=== PATIENT | female | born 1935 | race Caucasian/White ===

== ENCOUNTER 2020-07-27 12:05 | Emergency (ER) | payer MEDICARE, OTHER ==
[~2020-07-27] VITALS: Ht 152.4 cm; Wt 65.3 kg
[2020-07-27] MEDS ORDERED: GUAI5SYR4 GT (12:40)
[2020-07-27] MEDS ORDERED: AZIT500T PO (12:40)
[2020-07-27] MEDS ORDERED: PRED50TA PO (12:40)
[2020-07-27] MEDS ORDERED: AZITHROMYCIN 250 MG TABLET PO ONE (12:45)
[2020-07-27] MEDS ORDERED: predniSONE 50 MG TABLET PO ONE (12:45)
--- NOTE | 2020-07-27 12:51 | NUR ---
Patient discharged to home in stable condition with slow steady gait. Written and verbal after care instructions given to patient. Patient verbalized understanding & compliance of instructions. Stressed follow up with her primary doctor or return to ER for worsening s/s.
[2020-07-27] MEDS ORDERED: predniSONE 50 MG TABLET ONE (12:53)
[2020-07-27] MEDS ORDERED: AZITHROMYCIN 250 MG TABLET ONE (12:53)
== END 2020-07-27 12:52 | disposition home or self-care (01) ==
LOC: ER 12:05
DX: J18.9 Pneumonia, unspecified organism (principal)
CPT/HCPCS: 99283; J7512; A4663; Q0144

== ENCOUNTER 2021-04-28 16:04 | Emergency (ER) | payer MEDICARE, OTHER ==
[~2021-04-28] VITALS: Ht 152.4 cm; Wt 68.0 kg
[~2021-04-28 16:04] MED LIST: AZIT500T PO; GUAI5SYR4 GT; PRED50TA PO
--- NOTE | 2021-04-28 16:20 | NUR ---
Pt was brought back immediately but went to the restroom and was brought to room 3 after, EKG was done and pt placed on cont night monitor.
[2021-04-28] MEDS ORDERED: ASPIRIN 325 MG TABLET PO ONE (16:45)
[2021-04-28] MEDS ORDERED: NITROGLYCERIN 0.4 MG/TAB BOTTLE SL ONE ×2 (16:45→16:51)
[2021-04-28] MEDS ORDERED: ASPIRIN 325 MG TABLET ONE (16:51)
[2021-04-28 16:53] LABS: HEMATOCRIT 36.1 % (31.2-41.9); MEAN CORPUSCULAR HEMOGLOBIN 31.7 uug (24.7-32.8); MEAN CORPUSCULAR VOLUME 91.3 fL (75.5-95.3); PLATELET COUNT (AUTO) 206 K/uL (179-408)
[2021-04-28 17:01] LABS: CARBON DIOXIDE 26 mmol/L (21-32); CHLORIDE 103 mmol/L (98-107); CREATININE 0.9 mg/dL (0.6-1.3); GLUCOSE 92 mg/dL (74-106); POTASSIUM 4.6 mmol/L (3.5-5.1); UREA NITROGEN, BLOOD 21 mg/dL (7-18)
[2021-04-28 17:15] LABS: ALANINE AMINOTRANSFERASE 30 U/L (14-59); ALKALINE PHOSPHATASE 70 U/L (50-136); ASPARTATE AMINOTRANSFERASE 25 U/L (15-37); BILIRUBIN,DIRECT 0.1 mg/dL (0.0-0.2); BILIRUBIN,TOTAL 0.3 mg/dL (0.2-1.0); TOTAL PROTEIN, SERUM 6.9 g/dL (6.4-8.2)
--- NOTE | 2021-04-28 19:00 | NUR ---
Denies pain at this time. No signs and symptoms of pain. VSS. NAD. Will continue to monitor.
--- NOTE | 2021-04-28 19:45 | NUR ---
second lab troponin done c/o phleb.
--- NOTE | 2021-04-28 20:27 | NUR ---
Patient discharged to home via private vehicle in stable condition, VSS, NAD. Written and verbal after care instructions given. Patient verbalizes understanding of instructions. Stressed follow up or return to ER for worsening s/s.
[2021-04-28 20:31] VITALS: BP 130/60
== END 2021-04-28 20:28 | disposition home or self-care (01) ==
LOC: ER 16:04
DX: R07.9 Chest pain, unspecified (principal); Z20.822 Contact with and (suspected) exposure to COVID-19; Z82.49 Family history of ischemic heart disease and other diseases of the circulatory system; R00.1 Bradycardia, unspecified; E78.5 Hyperlipidemia, unspecified; Z79.899 Other long term (current) drug therapy; Z87.01 Personal history of pneumonia (recurrent)
CPT/HCPCS: 36415; 71045; 84484; 85025; 85730; 93005; A4663